=== PATIENT | male | born 1960 | race Caucasian/White ===

== ENCOUNTER → 2017-07-14 | Outpatient (CLI) | payer MEDICARE ==
--- NOTE | 2017-07-14 10:58 | US ---
EXAMINATION TYPE: US scrotum with doppler. Grayscale and color Doppler Duplex imaging performed of t he scrotum. DATE OF EXAM: 07/14/2017 COMPARISON: NONE CLINICAL HISTORY: N50.89 TESTICULAR MASS. Patient states doctor felt mass on left side. Patient stat es having right testicle injury a few years ago from grandson jumping on him, resulting in having liliam ething removed but doesn't remember what. EXAM MEASUREMENTS: TESTICLES: Right Testicle: 5.0 x 3.1 x 3.5 cm Left Testicle: 4.7 x 3.2 x 3.6 cm EPIDIDYMIS HEAD: Right Epididymis: 0.9 x 1.7 x 1.0 cm Left Epididymis: 1.2 x 1.2 x 1.2 cm Doppler performed to assess for testicular vascularity; good bilateral color flow and waveforms are s een. There is no evidence of testicular torsion. Presence of hydroceles: small right Presence of varicoceles: no Left echogenic heterogenous epididymis. Multiple cystic lesiosn seen in left epididymal head, larges t = 0.8 x 1.2 x 0.7 cm. Right lateral teste appears heterogenous. IMPRESSION: 1. Prominent left epididymis with epididymal head cyst. 2. Nonspecific heterogeneity of the right lateral testicle. Follow-up recommended.
[2017-07-14 11:09] LABS: Basophils # (A) 0.1 k/uL (0-0.2); Basophils % (A) 1 %; Eosinophils # (A) 0.1 k/uL (0-0.7); Eosinophils % (A) 2 %; HCT 50.3 % (39.0-53.0); HGB 15.8 gm/dL (13.0-17.5); Lymphocytes # (A) 2.2 k/uL (1.0-4.8); Lymphocytes % (A) 26 %; MCH 29.5 pg (25.0-35.0); MCHC 31.4 g/dL (31.0-37.0); MCV 94.1 fL (80.0-100.0); Monocytes # (A) 0.5 k/uL (0-1.0); Monocytes % (A) 6 %; Neutrophils # (A) 5.5 k/uL (1.3-7.7); Neutrophils % (A) 65 %; Platelet Count 239 k/uL (150-450); RBC 5.35 m/uL (4.30-5.90); RDW 13.5 % (11.5-15.5); WBC 8.5 k/uL (3.8-10.6)
[2017-07-14 11:10] LABS: Appearance,Urine Clear (Clear); Bacteria,Urine Rare /hpf; Bilirubin,Urine Negative (Negative); Blood,Urine Small (Negative); Color,Urine Yellow; Glucose,Urine (UA) Negative (Negative); Ketones,Urine Negative (Negative); Leukocyte Esterase,Urine Negative (Negative); Mucus,Urine Rare /hpf; Nitrite,Urine Negative (Negative); PH, Urine 5.5 (5.0-8.0); Protein,Urine Negative (Negative); RBC,Urine 2 /hpf (0-5); Specific Gravity,Urine 1.016 (1.001-1.035); Urobilinogen,Urine <2.0 mg/dL (<2.0); WBC,Urine <1 /hpf (0-5)
[2017-07-14 11:19] LABS: ALT 44 U/L (21-72); AST 29 U/L (17-59); Alkaline Phosphatase 55 U/L (38-126); Anion Gap 8 mmol/L; Blood Urea Nitrogen 14 mg/dL (9-20); C Reactive Protein <5.0 mg/L (<10.0); Calcium 9.5 mg/dL (8.4-10.2); Carbon Dioxide 30 mmol/L (22-30); Chloride 104 mmol/L (98-107); Cholesterol 181 mg/dL (<200); Creatine Kinase 72 U/L (55-170); Glucose 99 mg/dL (74-99); HDL Cholesterol 49 mg/dL (40-60); LDL Cholesterol,Calculated 110 mg/dL (0-99); Potassium 4.5 mmol/L (3.5-5.1); Sodium 142 mmol/L (137-145); Total Bilirubin 0.6 mg/dL (0.2-1.3); Total Protein 6.7 g/dL (6.3-8.2); Triglycerides 111 mg/dL (<150); Uric Acid 6.1 mg/dL (3.5-8.5)
--- NOTE | 2017-07-14 11:23 | XR ---
EXAMINATION TYPE: XR abdomen 1V DATE OF EXAM: 07/14/2017 COMPARISON: NONE HISTORY: Pain TECHNIQUE: Single supine KUB image of the abdomen is obtained FINDINGS: Small bowel demonstrates no evidence for dilatation or air fluid levels. Gas and fecal material is seen in non-distended colon. No convincing evidence for pneumoperitoneum. No unusual calcifications. The lung bases are clear. The osseous structures are intact. IMPRESSION: 1. Overall nonobstructive bowel gas pattern.
[2017-07-14 11:45] LABS: Prostate Specific Antigen 0.63 ng/mL (0.00-4.00)
[2017-07-14 12:35] LABS: Erythrocyte Sedimentation Rate 2 mm/hr (0-15)
== END | disposition home or self-care (01) ==
LOC: RADUSWWP 09:28
PROVIDERS: ATTEND Internal Medicine
DX: N50.3 Cyst of epididymis (principal)
CPT/HCPCS: 36415; 74018; 76870; 80053; 80061; 81001; 82306; 82550; 84153; 84550; 85025; 85652; 86140; 93975

== ENCOUNTER → 2019-05-04 | Outpatient (CLI) | payer MEDICARE ==
--- NOTE | 2019-05-04 16:56 | US ---
EXAMINATION TYPE: US scrotum with doppler. Grayscale and color Doppler Duplex imaging performed of tonya lópez scrotum. DATE OF EXAM: 05/04/2019 COMPARISON: NONE CLINICAL HISTORY: N50.3 Cyst of epididymis. h/o epididymal cyst, palp on the left near epi EXAM MEASUREMENTS: TESTICLES: Right Testicle: 4.8 x 3.8 x 2.4 cm, rete testis seen laterally Left Testicle: 5.0 x 3.4 x 2.0 cm EPIDIDYMIS HEAD: Right Epididymis: 0.9 cm, cystic area noted = 1.4cm Left Epididymis: 1.6 cm , septated cystic area noted = 1.7cm Doppler performed to assess for testicular vascularity; good bilateral color flow and waveforms are s een. There is no evidence of testicular torsion. Presence of hydroceles: mild laterally on both testicles Presence of varicoceles: no IMPRESSION: Bilateral epididymal cysts, larger on the left than right and septated on the left. Small bilateral hydroceles are also incidentally noted.
== END | disposition home or self-care (01) ==
LOC: RADUSWWP 16:10
PROVIDERS: ATTEND Internal Medicine
DX: N50.3 Cyst of epididymis (principal); Z88.5 Allergy status to narcotic agent; Z88.6 Allergy status to analgesic agent
CPT/HCPCS: 76870; 93975

== ENCOUNTER 2019-08-19 14:58 | Emergency (ER) | payer MEDICARE ==
[2019-08-19 15:03] VITALS: TEMP 97.7
--- NOTE | 2019-08-19 15:36 | ED ---
General Adult HPI - General Chief complaint: Abdominal Pain Stated complaint: pain in left side Time Seen by Provider: 08/19/19 15:06 Source: patient Mode of arrival: ambulatory Limitations: no limitations - History of Present Illness Initial comments: Dictation was produced using [employer] dictation software. please excuse any grammatical, word or spelling errors. Chief Complaint: 58-year-old male presents with 1 day of abdominal pain. History of Present Illness: Patient's 58-year-old male who presents today with chief complaint of abdominal pain. Patient localizes pain to his left lower quadrant. States he rates his back. She has been told that he had gravel in his urine in the past however he hasn't been diagnosed with kidney stones or nephrolithiasis. Patient states that his pain is colicky in nature. This with mild nausea and vomiting. Recently had surgery and has gingival sutures currently. Patient has any fever, chills or night sweats. He states that he is in some pain right now however denies his pain is currently severe. He has past medical history of chronic pain. Does report some mild diarrhea. The ROS documented in this emergency department record has been reviewed and confirmed by me. Those systems with pertinent positive or negative responses have been documented in the HPI. All other systems are other negative and/or noncontributory. PHYSICAL EXAM: General Impression: Alert and oriented x3, not in acute distress HEENT: Normocephalic atraumatic, extra-ocular movements intact, pupils equal and reactive to light bilaterally, mucous membranes moist. Cardiovascular: Heart regular rate and rhythm, S1&S2 audible, no murmurs, rubs or gallops Chest: Lungs clear to auscultation bilaterally, no rhonchi, no wheeze, no rales Abdomen: Bowel sounds present, mild tenderness to the left lower quadrant, no palpable aorta Musculoskeletal: Pulses present and equal in all extremities, no peripheral edema Motor: no focal deficits noted Neurological: CN II-XII grossly intact, no focal motor or sensory deficits noted Skin: Intact with no visualized rashes Psych: Normal affect and mood ED course: 58-year-old male chief complaint of left lower quadrant abdominal pain. States he rates his back and is severe. Signs upon arrival are within acceptable limits. Clinical presentation suspicious for nephrolithiasis. Laboratory evaluation obtained. CBC, coag panel, metabolic panel is unremarkable. Urinalysis shows greater than 182 red blood cells. Computed tomography scan of the abdomen and pelvis shows small nonobstructing renal calculi at the left mid ureter causing mild left-sided hydronephrosis. Patient given intravenous fluids and IV analgesics. He is reevaluated bedside found to be in stable medical condition. Patient is agreeable for discharge. He is told to use maintain good hydration. Return parameters was discussed. He is given outpatient referral to urology - Related Data Allergies Allergy/AdvReac Type Severity Reaction Status Date / Time No Known Allergies Allergy Verified 08/19/19 15:03 Review of Systems ROS Statement: Those systems with pertinent positive or pertinent negative responses have been documented in the HPI. ROS Other: All systems not noted in ROS Statement are negative. Past Medical History Additional Past Medical History / Comment(s): chronic back pain History of Any Multi-Drug Resistant Organisms: None Reported Past Surgical History: Back Surgery Past Psychological History: No Psychological Hx Reported Smoking Status: Never smoker Past Alcohol Use History: None Reported Past Drug Use History: None Reported General Exam Limitations: no limitations Course Vital Signs 08/19/19 08/19/19 15:01 16:30 Temperature 97.7 F Pulse Rate 75 71 Respiratory 16 19 Rate Blood Pressure 128/53 118/87 O2 Sat by Pulse 97 96 Oximetry Medical Decision Making - Lab Data Result diagrams: 08/19/19 15:32 08/19/19 15:32 Lab Results 08/19/19 08/19/19 08/19/19 Range/Units 15:32 15:32 15:32 WBC 8.2 (3.8-10.6) k/uL RBC 5.12 (4.30-5.90) m/uL Hgb 15.6 (13.0-17.5) gm/dL Hct 45.8 (39.0-53.0) % MCV 89.5 (80.0-100.0) fL MCH 30.4 (25.0-35.0) pg MCHC 33.9 (31.0-37.0) g/dL RDW 11.9 (11.5-15.5) % Plt Count 237 (150-450) k/uL Neutrophils % 71 % Lymphocytes % 19 % Monocytes % 6 % Eosinophils % 1 % Basophils % 1 % Neutrophils # 5.8 (1.3-7.7) k/uL Lymphocytes # 1.5 (1.0-4.8) k/uL Monocytes # 0.5 (0-1.0) k/uL Eosinophils # 0.1 (0-0.7) k/uL Basophils # 0.0 (0-0.2) k/uL PT 10.0 (9.0-12.0) sec INR 1.0 (<1.2) APTT 21.0 L (22.0-30.0) sec Sodium 138 (137-145) mmol/L Potassium 4.1 (3.5-5.1) mmol/L Chloride 104 (98-107) mmol/L Carbon Dioxide 29 (22-30) mmol/L Anion Gap 5 mmol/L BUN 11 (9-20) mg/dL Creatinine 0.93 (0.66-1.25) mg/dL Est GFR (CKD-EPI)AfAm >90 (>60 ml/min/1.73 sqM) Est GFR (CKD-EPI)NonAf >90 (>60 ml/min/1.73 sqM) Glucose 124 H (74-99) mg/dL Calcium 9.2 (8.4-10.2) mg/dL Total Bilirubin 0.4 (0.2-1.3) mg/dL AST 27 (17-59) U/L ALT 26 (4-49) U/L Alkaline Phosphatase 47 (38-126) U/L Total Protein 6.8 (6.3-8.2) g/dL Albumin 4.2 (3.5-5.0) g/dL Lipase 51 (23-300) U/L Urine Color Urine Appearance (Clear) Urine pH (5.0-8.0) Ur Specific Leander (1.001-1.035) Urine Protein (Negative) Urine Glucose (UA) (Negative) Urine Ketones (Negative) Urine Blood (Negative) Urine Nitrite (Negative) Urine Bilirubin (Negative) Urine Urobilinogen (<2.0) mg/dL Ur Leukocyte Esterase (Negative) Urine RBC (0-5) /hpf Urine WBC (0-5) /hpf Urine Mucus (None) /hpf Urine Yeast (Budding) (None) /hpf 08/19/19 Range/Units 15:32 WBC (3.8-10.6) k/uL RBC (4.30-5.90) m/uL Hgb (13.0-17.5) gm/dL Hct (39.0-53.0) % MCV (80.0-100.0) fL MCH (25.0-35.0) pg MCHC (31.0-37.0) g/dL RDW (11.5-15.5) % Plt Count (150-450) k/uL Neutrophils % % Lymphocytes % % Monocytes % % Eosinophils % % Basophils % % Neutrophils # (1.3-7.7) k/uL Lymphocytes # (1.0-4.8) k/uL Monocytes # (0-1.0) k/uL Eosinophils # (0-0.7) k/uL Basophils # (0-0.2) k/uL PT (9.0-12.0) sec INR (<1.2) APTT (22.0-30.0) sec Sodium (137-145) mmol/L Potassium (3.5-5.1) mmol/L Chloride (98-107) mmol/L Carbon Dioxide (22-30) mmol/L Anion Gap mmol/L BUN (9-20) mg/dL Creatinine (0.66-1.25) mg/dL Est GFR (CKD-EPI)AfAm (>60 ml/min/1.73 sqM) Est GFR (CKD-EPI)NonAf (>60 ml/min/1.73 sqM) Glucose (74-99) mg/dL Calcium (8.4-10.2) mg/dL Total Bilirubin (0.2-1.3) mg/dL AST (17-59) U/L ALT (4-49) U/L Alkaline Phosphatase (38-126) U/L Total Protein (6.3-8.2) g/dL Albumin (3.5-5.0) g/dL Lipase (23-300) U/L Urine Color Light Red Urine Appearance Cloudy (Clear) Urine pH 5.5 (5.0-8.0) Ur Specific Leander 1.027 (1.001-1.035) Urine Protein 1+ H (Negative) Urine Glucose (UA) Negative (Negative) Urine Ketones Negative (Negative) Urine Blood Large H (Negative) Urine Nitrite Negative (Negative) Urine Bilirubin Negative (Negative) Urine Urobilinogen <2.0 (<2.0) mg/dL Ur Leukocyte Esterase Negative (Negative) Urine RBC >182 H (0-5) /hpf Urine WBC 8 H (0-5) /hpf Urine Mucus Few H (None) /hpf Urine Yeast (Budding) Few H (None) /hpf Disposition Clinical Impression: Nephrolithiasis Disposition: HOME SELF-CARE Condition: Fair Instructions (If sedation given, give patient instructions): Kidney Stones (ED) Is patient prescribed a controlled substance at d/c from ED?: No Referrals: Jai Scott MD [STAFF PHYSICIAN] - 1-2 days Time of Disposition: 17:07
[2019-08-19 15:46] LABS: Basophils % (A) 1 %; Eosinophils # (A) 0.1 k/uL (0-0.7); Eosinophils % (A) 1 %; HCT 45.8 % (39.0-53.0); HGB 15.6 gm/dL (13.0-17.5); Lymphocytes # (A) 1.5 k/uL (1.0-4.8); Lymphocytes % (A) 19 %; MCH 30.4 pg (25.0-35.0); MCHC 33.9 g/dL (31.0-37.0); MCV 89.5 fL (80.0-100.0); Mean Platelet Volume 7.1; Monocytes # (A) 0.5 k/uL (0-1.0); Monocytes % (A) 6 %; Neutrophils # (A) 5.8 k/uL (1.3-7.7); Neutrophils % (A) 71 %; Platelet Count 237 k/uL (150-450); RBC 5.12 m/uL (4.30-5.90); RDW 11.9 % (11.5-15.5); WBC 8.2 k/uL (3.8-10.6)
[2019-08-19] MEDS ORDERED: KETOROLAC 30 MG/ML 1 ML VIAL IVP STA (15:50)
[2019-08-19] MEDS ORDERED: SODIUM CHLORIDE 0.9% 1,000 ML IV STA (15:50)
[2019-08-19] MEDS ORDERED: MORPHINE SULFATE 4 MG/ML SYRINGE IV STA (15:50)
[2019-08-19 15:53] LABS: ALT 26 U/L (4-49); AST 27 U/L (17-59); African American GFR (CKD) >90 (>60 ml/min/1.73 sqM); Albumin 4.2 g/dL (3.5-5.0); Alkaline Phosphatase 47 U/L (38-126); Anion Gap 5 mmol/L; Blood Urea Nitrogen 11 mg/dL (9-20); Calcium 9.2 mg/dL (8.4-10.2); Carbon Dioxide 29 mmol/L (22-30); Chloride 104 mmol/L (98-107); Glucose 124 mg/dL (74-99); Non-African American GFR(CKD) >90 (>60 ml/min/1.73 sqM); Potassium 4.1 mmol/L (3.5-5.1); Sodium 138 mmol/L (137-145); Total Bilirubin 0.4 mg/dL (0.2-1.3); Total Protein 6.8 g/dL (6.3-8.2)
[2019-08-19 16:21] LABS: Appearance,Urine Cloudy (Clear); Bilirubin,Urine Negative (Negative); Blood,Urine Large (Negative); Budding Yeast,Urine Few /hpf; Color,Urine Light Red; Glucose,Urine (UA) Negative (Negative); Ketones,Urine Negative (Negative); Leukocyte Esterase,Urine Negative (Negative); Mucus,Urine Few /hpf; Nitrite,Urine Negative (Negative); PH, Urine 5.5 (5.0-8.0); Protein,Urine 1+ (Negative); RBC,Urine >182 /hpf (0-5); Specific Gravity,Urine 1.027 (1.001-1.035); Urobilinogen,Urine <2.0 mg/dL (<2.0); WBC,Urine 8 /hpf (0-5)
--- NOTE | 2019-08-19 16:22 | CT ---
EXAMINATION TYPE: CT abdomen pelvis wo con DATE OF EXAM: 08/19/2019 HISTORY: Left sided abdominal pain. Kidney stone per order. CT DLP: 652.9 mGycm. Automated Exposure Control for Dose Reduction was Utilized. TECHNIQUE: CT scan of the abdomen and pelvis is performed without oral or IV contrast. COMPARISON: NONE FINDINGS: Within the limitations of a non-contrast study, the following observations are made. LUNG BASES: Some dependent atelectasis bilateral lung bases. LIVER/GB: No significant abnormality is appreciated. PANCREAS: No significant abnormality is seen. SPLEEN: No significant abnormality is seen. ADRENALS: No significant abnormality is seen. KIDNEYS: There are roughly 4 nonobstructing right renal calculi measuring 2 mm or smaller. There are estimated 4-6 small left-sided renal calculi measuring 3 mm or smaller. Right-sided obstructing urete r calculi or hydronephrosis. There is 4 mm left mid ureter calculus axial image 104 causing mild left -sided hydronephrosis and proximal hydroureter. No additional renal calculus in the poorly distended bladder. BOWEL: Normal-appearing appendix cecum right lower quadrant. No suspicious small or large bowel dilat ation. Suboptimal evaluation of bowel without enteric contrast. Mild to moderate wall thickening from splenic flexure through the proximal to mid sigmoid colon presumed product of poor distention, mild colitis felt less likely. Some diverticula in the sigmoid colon are present without surrounding fat s tranding. GENITAL ORGANS: Prostate gland not suspiciously enlarged. Some central calcifications incidentally no george. Left-sided pelvic phleboliths. LYMPH NODES: No greater than 1cm abdominal or pelvic lymph nodes are appreciated. OSSEOUS STRUCTURES: Metallic disc material lumbosacral junction. There is retained catheter fragment in the lumbar spinal canal right of midline seen best sagittal image 70. OTHER: No significant additional abnormality is seen. IMPRESSION: 1. Small bilateral nonobstructing renal calculi with 4 mm left mid ureter calculus causing mild left- sided hydronephrosis. 2. Note is made of retained foreign body or stimulator catheter fragment in the lumbar spinal canal.
[2019-08-19] MEDS ORDERED: ACET/COD 300 MG/30 MG STARTER PACK 6 TAB BTL PO STA (17:06)
[2019-08-19 17:16] VITALS: BP 126/93; PULSE 76; RESP 18
== END 2019-08-19 17:17 | disposition home or self-care (01) ==
LOC: EC 14:58
DX: N13.2 Hydronephrosis with renal and ureteral calculous obstruction (principal); R19.7 Diarrhea, unspecified; G89.29 Other chronic pain; Z98.890 Other specified postprocedural states
CPT/HCPCS: 36415; 80053; 83690; 85025; 85610; 85730; 81001; 74176; 99284; 96374; 96375; 96361; J2270; J1885